=== PATIENT | female | born 1960 | race Caucasian/White ===

== ENCOUNTER 2016-10-21 07:19 | Emergency (ER) | payer OTHER ==
[~2016-10-21] VITALS: Wt 64.5 kg
[~2016-10-21 07:19] MED LIST: ALLO300T2 PO; AMLO-147 PO; GABA-526 PO; LEVO88TA42 PO; MECL25TA2 PO; ONDA4TAB8 PO
[2016-10-21] MEDS ORDERED: HYDROCODONE/APAP (5/325) TAB PO ONE (08:00)
[2016-10-21] MEDS ORDERED: IBUPROFEN 600 MG TAB PO ONE (08:00)
--- NOTE | 2016-10-21 08:42 | RADRPT ---
PROCEDURE: XR Chest. CLINICAL INDICATION: Cough. TECHNIQUE: Single frontal chest x-ray. COMPARISON: Chest radiograph 06/23/2012. FINDINGS: The cardiomediastinal silhouette is unremarkable. No pneumothorax, pleural effusion or consolidation is seen. No acute osseous abnormality is noted. IMPRESSION: 1. No acute cardiopulmonary abnormality. No significant interval change. RPTAT: AA .Shantal Jennings MD, MD Date Time Electronically viewed and signed by .Shantal Jennings MD, on 10/21/2016 08:41 .N/
[2016-10-21] MEDS ORDERED: HYDR-906 PO (09:03)
[2016-10-21] MEDS ORDERED: NAPR-260 PO (09:03)
[2016-10-21] MEDS ORDERED: AMOX1TAB10 PO (09:03)
--- NOTE | 2016-10-21 09:11 | ERD ---
ER Documentation Chief Complaint Date/Time DATE: 10/21/16 TIME: 09:08 Chief Complaint 1 week of flu like symptoms not better with tamiflu. HPI 56 year old female comes in with flu like symptoms for 1 week. She is a cough and congestion and sore throat as well as a frontal headache. She was seen in different emergency room and was given a prescription for Tamiflu and has been 40s and she states that her symptoms have not improved. She did not try taking anything at home as she was not sure what to take for pain. She describes as a pressure type sensation in the frontal aspect of her head and slightly throbbing in nature. She has not had any vomiting or diarrhea. She denies fevers, chills, chest pain or shortness of breath. ROS All systems reviewed and are negative except as per history of present illness. Medications Home Meds Active Scripts Hydrocodone/Acetaminophen (Soldier 5-325 Tablet) 1 Each Tablet, 1 TAB PO Q6H Y for PAIN, #10 TAB Prov:JORGE LUIS STRINGER PA-C 10/21/16 Naproxen* (Naprosyn*) 500 Mg Tablet, 500 MG PO BID Y for PAIN AND/OR INFLAMMATION, #30 TAB Prov:JORGE LUIS STRINGER PA-C 10/21/16 Amoxicillin/Potassium Clav (Amox-Clav 875-125 mg Tablet) 875-125 mg Tab, 1 TAB PO BID for 7 Days, #14 TAB Prov:JORGE LUIS STRINGER PA-C 10/21/16 Ondansetron Hcl* (Zofran*) 4 Mg Tablet, 4 MG PO Q6H Y for NAUSEA, #14 TAB Prov:MEHNAZ MCCAIN MD 07/12/15 Meclizine Hcl* (Antivert*) 25 Mg Tablet, 25 MG PO Q8, #20 TAB Prov:MEHNAZ MCCAIN MD 07/12/15 Reported Medications Allopurinol* (Allopurinol*) 300 Mg Tablet, 300 MG PO DAILY, TAB 07/12/15 Levothyroxine Sodium* (Levoxyl*) 88 Mcg Tablet, 88 MCG PO AC BREAKFAST, TAB 07/12/15 Amlodipine Besylate* (Amlodipine Besylate*) 10 Mg Tablet, 10 MG PO DAILY, TAB 07/12/15 Gabapentin* (Gabapentin*) 600 Mg Tablet, 600 MG PO BID, TAB 07/12/15 Allergies Allergies: Coded Allergies: No Known Allergy (Unverified , 07/12/15) PMhx/Soc History of Surgery: Yes (csect x3) Anesthesia Reaction: No Hx Neurological Disorder: Yes (migraines) Hx Cardiac Disorders: Yes (HTN) Hx Psychiatric Problems: No Hx Miscellaneous Medical Probl: Yes (hypothyroidism) Hx Alcohol Use: No Hx Substance Use: No Hx Tobacco Use: No Smoking Status: Never smoker Physical Exam Vitals Vital Signs Date Time Temp Pulse Resp B/P Pulse Ox O2 Delivery O2 Flow Rate FiO2 10/21/16 07:21 98.6 72 21 132/84 97 Physical Exam General: Well-developed, well-nourished. The patient appears in no acute distress. HEENT: Head is normocephalic, atraumatic. No scleral icterus. Pupils are equal , round, and reactive. Oral mucous membranes are moist. Oropharynx is bilateral exudate, uvula midline, no masses Neck: Supple. Nontender. Lungs: Clear to auscultation. Normal air movement. Heart: Regular rate and rhythm. S1 and S2 are normal. No murmurs, gallops, or rubs. Abdomen: Soft, nontender, nondistended. Bowel sounds are normoactive. Extremities: No clubbing or cyanosis. Normal pulses. Moving extremities x 4. No weakness. Neurologic: Alert and oriented 3. No focal deficits. Skin: Normal turgor. No rash or lesions. Results 24 hrs Current Medications Medications (Trade) Dose Ordered Sig/Laith Route PRN Reason Start Time Stop Time Status Last Admin Dose Admin Ibuprofen (Motrin) 600 mg ONCE ONCE PO 10/21/16 08:00 10/21/16 08:01 10/21/16 07:56 Acetaminophen/ Hydrocodone Bitart (Soldier (5/325)) 1 tab ONCE ONCE PO 10/21/16 08:00 10/21/16 08:01 10/21/16 07:56 Procedures/MDM ED course: Patient was given ibuprofen, as well as Soldier for pain. I reassessed her pain and she states that she is feeling much better at this time. Chest X-ray 1V Interpreted by me as well as radiologist: Soft Tissue: No acute abnormalities Bones: No acute abnormalities Mediastinum/Cardiac Silhouette/Lungs: No acute abnormalities MDM: The patient is a 56-year-old female who comes in with an acute upper respiratory infection, versus acute bronchitis. I believe that the patient's headache symptoms are related to her URI symptoms, and likely a tension headache. Suspicion for an intracranial hemorrhage, mass-effect or midline shift are low at this time. Chest x-ray was performed given her symptoms for a week now, there is no evidence of pneumonia. I am however her symptoms have not improved and she does have exiting material will be treated for bronchitis versus URI with Augmentin. The patient has a differential diagnosis of a viral upper respiratory infection, bacterial upper respiratory infection, bronchitis, pneumonia, pharyngitis, laryngitis, epiglottitis, croup, pneumonia. Patient has a normal pulmonary examination, clear breath sounds, normal pulse oximetry, with no corrective measures needed at this time. Fluids, rest, antipyretics were encouraged. Departure Diagnosis: Primary Impression: Acute URI Additional Impression: Headache Condition: Good Patient Instructions: Managing Tension-type Headache Symptoms, Bronchitis, Antiobiotic Treatment (Adult) Additional Instructions: Llame al doctor MAANA y zainab hao JUAN MIGUEL PARA DENTRO DE 1-2 BAKER.Dgale a la secretaria que nosotros le instruimos hacer esta juan miguel.Avise o llame si long condicin se empeora antes de la juan miguel. Regresa aqui si peor o no mejor. JORGE LUIS STRINGER PA-C Oct 21, 2016 09:11
[2016-10-21 09:35] VITALS: BP 156/83; PULSE 60; RESP 18; TEMP 97.7
== END 2016-10-21 09:25 | disposition home or self-care (01) ==
LOC: FTE 07:19
DX: J06.9 Acute upper respiratory infection, unspecified (principal); R51 Headache; I10 Essential (primary) hypertension; E03.9 Hypothyroidism, unspecified
CPT/HCPCS: 71010; Z7502; Z7610

== ENCOUNTER 2017-05-10 22:16 | Emergency (ER) | payer SELFPAY ==
[~2017-05-10] VITALS: Ht 162.6 cm; Wt 66.0 kg
[~2017-05-10 22:16] MED LIST changes: +AMOX1TAB10 PO; +HYDR-906 PO; +NAPR-260 PO
[2017-05-10 22:21] VITALS: Ht 162.6 cm; Wt 66.0 kg
== END 2017-05-11 00:21 | disposition left against medical advice (07) ==
LOC: FTE 22:16
DX: Z53.21 Procedure and treatment not carried out due to patient leaving prior to being seen by health care provider (principal)